=== PATIENT | male | born 1970 | race African-American/Black ===

== ENCOUNTER 2018-01-16 08:46 | Emergency (ER) | payer MEDICARE ==
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
[2018-01-16 09:55] VITALS: BP 139/91
== END 2018-01-16 09:54 | disposition home or self-care (01) ==
LOC: ED 08:46
DX: S60.410A Abrasion of right index finger, initial encounter (principal); W55.82XA Struck by other mammals, initial encounter; Y92.89 Other specified places as the place of occurrence of the external cause
CPT/HCPCS: 99281

== ENCOUNTER 2018-01-16 12:18 | Emergency (ER) | payer MEDICARE ==
[2018-01-16] MEDS ORDERED: Rabies VIRUS VACCINE (Imovax)* 2.5 UNIT/ML 1 ML IM ONE (12:25)
[2018-01-16] MEDS ORDERED: Rabies Immune Globulin 10 ML* 150 UNIT/ML VIAL IM ONE (12:26)
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
[2018-01-16 13:40] VITALS: BP 139/91
== END 2018-01-16 13:38 | disposition home or self-care (01) ==
LOC: ED 12:18
DX: S61.212A Laceration without foreign body of right middle finger without damage to nail, initial encounter (principal); S60.410A Abrasion of right index finger, initial encounter; Z20.3 Contact with and (suspected) exposure to rabies; Y92.89 Other specified places as the place of occurrence of the external cause
CPT/HCPCS: 90375; 96372; 99281

== ENCOUNTER 2018-01-31 08:44 | Emergency (ER) | payer MEDICARE ==
[2018-01-31] MEDS ORDERED: Rabies VIRUS VACCINE (Imovax)* 2.5 UNIT/ML 1 ML IM ONE (08:58)
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
[2018-01-31 09:38] VITALS: BP 150/108
[2018-01-31] MEDS ORDERED: Rabies Vaccine (RabAvert)* 2.5 UNITS VIAL IM ONE (10:00)
== END 2018-01-31 09:35 | disposition home or self-care (01) ==
LOC: ED 08:44
DX: Z20.3 Contact with and (suspected) exposure to rabies (principal); Z23 Encounter for immunization
CPT/HCPCS: 90471; 90675; 96372; 99282

== ENCOUNTER 2018-03-11 07:38 | Emergency (ER) | payer MEDICARE ==
[2018-03-11] MEDS ORDERED: Metoprolol Tartrate TAB* 50 mg PO ONE (08:03)
[2018-03-11 08:35] LABS: ABS Basophils 0 10^3/ul (0-0.2); ABS Eosinophils 0.1 10^3/ul (0-0.6); ABS Lymphocytes 1.9 10^3/ul (1.0-4.8); ABS Monocytes 0.6 10^3/ul (0-0.8); ABS Neutrophils 3.5 10^3/ul (1.5-7.7); ABS Nucleated RBC 0 10^3/ul; Eosinophil % 0.9 % (0-6); Hematocrit 45 % (42-52); Lymphocyte % 30.7 % (25-47); Mean Corpuscular HGB Conc 33 g/dl (31-36); Mean Corpuscular Hemoglobin 31 pg (27-31); Mean Corpuscular Volume 93 fL (80-94); Mean Platelet Volume 8.9 um3 (7.4-10.4); Nucleated Red Blood Cells % 0.1; Platelet Count 232 10^3/ul (150-450); Red Blood Count 4.85 10^6/ul (4.0-5.4); Red Cell Distribution Width 14 % (10.5-15); White Blood Count 6.1 10^3/ul (3.5-10.8)
[2018-03-11 08:54] LABS: EGFR Non-African American 81.3 (>60)
--- NOTE | 2018-03-11 08:55 | RAD ---
HISTORY: Chest pain COMPARISONS: None VIEWS: 1: frontal portable view of the chest at 8:30 AM FINDINGS: LINES AND TUBES: None. CARDIOMEDIASTINAL SILHOUETTE: The cardiomediastinal silhouette is normal for portable technique. PLEURA: The costophrenic angles are sharp. No pleural abnormalities are noted. LUNG PARENCHYMA: The lungs are clear. ABDOMEN: The upper abdomen is clear. There is no subphrenic gas. BONES AND SOFT TISSUES: No bone or soft tissue abnormalities are noted. IMPRESSION: NO ACTIVE CARDIOPULMONARY DISEASE.
[2018-03-11] MEDS ORDERED: Hydrochlorothiazide TAB* 25 MG PO ONE (09:00)
[2018-03-11] MEDS ORDERED: Losartan TAB* 25 MG PO ONE (09:00)
[2018-03-11] MEDS ORDERED: Losartan TAB* 25 MG PO SCH (09:00)
[2018-03-11] MEDS ORDERED: Hydrochlorothiazide TAB* 25 MG PO SCH (09:00)
[2018-03-11] MEDS ORDERED: Losartan/HCTZ 100/25 (NF) TAB PO SCH (09:00)
[2018-03-11 09:32] VITALS: BP 142/97
--- NOTE | 2018-03-11 18:37 | ED ---
Serge Handy Gabriel, scribed for Tatum Barroso MD on 03/11/18 at 0749 . HPI Chest Pain - HPI Summary HPI Summary: This patient is a 48 year old M presenting to [facility] with a chief complaint of CP that began last night but as since resolved. The patient rates the pain 0/10 in severity. Patient reports NGUYỄN and dizziness but is now resolve. Pt states he has run out of his antihypertensive 3 days ago becuase he lost them while relocating and the insurance will not pay for a new script at this time. He received a 3 month supply but lost it while he was moving and insurance will not cover it until the prescription is supposed to run out, so he has no pills for the next 2 months. No hx of MN or CVA. Patient reports that he has an appt to welfare to try and pay for additinal Rx. - History of Current Complaint Chief Complaint: EDChestWallPain Time Seen by Provider: 03/11/18 07:46 Hx Obtained From: Patient Onset/Duration: Still Present Timing: Intermittent Initial Severity: Mild Current Severity: None Pain Intensity: 0 Pain Scale Used: 0-10 Numeric Chest Pain Location: Diffuse Chest Pain Radiates: No Alleviating Factor(s): Spontaneous Resolution Associated Signs and Symptoms: Positive: Other: - NGUYỄN, neck stiffness, and dizziness - Allergy/Home Medications Allergies/Adverse Reactions: Allergies Allergy/AdvReac Type Severity Reaction Status Date / Time No Known Allergies Allergy Verified 03/11/18 07:43 Home Medications: Home Medications NK [No Home Medications Reported] 03/11/18 [History Confirmed 03/11/18] PMH/Surg Hx/FS Hx/Imm Hx Endocrine/Hematology History: Denies: Hx Anticoagulant Therapy Cardiovascular History: Reports: Hx Hypercholesterolemia, Hx Hypertension Denies: Hx Auto Implanted Cardiovert Defib, Hx Cardiac Arrest, Hx Myocardial Infarction Respiratory History: Denies: Hx Chronic Obstructive Pulmonary Disease (COPD) GI History: Reports: Hx Gastroesophageal Reflux Disease Neurological History: Denies: Hx CVA, Hx Dementia Infectious Disease History: No Infectious Disease History: Denies: Traveled Outside the [place] in Last 30 Days - Family History Known Family History: Positive: Cardiac Disease, Hypertension - Social History Alcohol Use: None Substance Use Type: Reports: None Smoking Status (MU): Unknown if Ever Smoked Review of Systems Positive: Chest Pain Positive: Other - stiff neck Neurological: Other - dizziness Positive: Headache All Other Systems Reviewed And Are Negative: Yes Physical Exam - Summary Physical Exam Summary: GENERAL: Patient is a well developed and nourished M who is lying comfortable in the stretcher. Patient is not in any acute respiratory distress. HEAD AND FACE: Normocephalic EYES: PERRLA, EOMI x 2. EARS: Hearing grossly intact. MOUTH: Oropharynx within normal limits. NECK: Supple, trachea is midline, no adenopathy, no JVD, no carotid bruit. CHEST: Symmetric, no tenderness at palpation LUNGS: Clear to auscultation bilaterally. No wheezing or crackles. CVS: Regular rate and rhythm, S1 and S2 present, no murmurs or gallops appreciated. ABDOMEN: Soft, non-tender. Bowel sounds are normal. No abdominal abnormal pulsations. EXTREMITIES: Full ROM in all major joints, no edema, no cyanosis or clubbing. NEURO: Alert and oriented x 3. No acute neurological deficits. Speech is normal and follows commands. SKIN: Dry and warm Triage Information Reviewed: Yes Vital Signs On Initial Exam: Initial Vitals Temp Pulse Resp BP Pulse Ox 99.1 F 82 16 158/109 98 03/11/18 07:40 03/11/18 07:40 03/11/18 07:40 03/11/18 07:40 03/11/18 07:40 Vital Signs Reviewed: Yes Diagnostics - Vital Signs Vital Signs Temp Pulse Resp BP Pulse Ox 03/11/18 07:40 99.1 F 82 16 158/109 98 - Laboratory Lab Results: Lab Results 03/11/18 03/11/18 03/11/18 Range/Units 08:13 08:13 08:13 WBC 6.1 (3.5-10.8) 10^3/ul RBC 4.85 (4.0-5.4) 10^6/ul Hgb 15.0 (14.0-18.0) g/dl Hct 45 (42-52) % MCV 93 (80-94) fL MCH 31 (27-31) pg MCHC 33 (31-36) g/dl RDW 14 (10.5-15) % Plt Count 232 (150-450) 10^3/ul MPV 8.9 (7.4-10.4) um3 Neut % (Auto) 57.5 (38-83) % Lymph % (Auto) 30.7 (25-47) % [place] % (Auto) 10.4 H (0-7) % Eos % (Auto) 0.9 (0-6) % Baso % (Auto) 0.5 (0-2) % Absolute Neuts (auto) 3.5 (1.5-7.7) 10^3/ul Absolute Lymphs (auto) 1.9 (1.0-4.8) 10^3/ul Absolute Monos (auto) 0.6 (0-0.8) 10^3/ul Absolute Eos (auto) 0.1 (0-0.6) 10^3/ul Absolute Basos (auto) 0 (0-0.2) 10^3/ul Absolute Nucleated RBC 0 10^3/ul Nucleated RBC % 0.1 APTT 34.0 (26.0-36.3) seconds Sodium 139 (139-145) mmol/L Potassium 3.7 (3.5-5.0) mmol/L Chloride 106 (101-111) mmol/L Carbon Dioxide 25 (22-32) mmol/L Anion Gap 8 (2-11) mmol/L BUN 17 (6-24) mg/dL Creatinine 0.98 (0.67-1.17) mg/dL Est GFR ( Amer) 104.5 (>60) Est GFR (Non-Af Amer) 81.3 (>60) BUN/Creatinine Ratio 17.3 (8-20) Glucose 114 H (70-100) mg/dL Calcium 9.5 (8.6-10.3) mg/dL Total Bilirubin 0.90 (0.2-1.0) mg/dL AST 16 (13-39) U/L ALT 16 (7-52) U/L Alkaline Phosphatase 47 (34-104) U/L Troponin I 0.00 (<0.04) ng/mL B-Natriuretic Peptide ( - 100) pg/mL Total Protein 7.4 (6.4-8.9) g/dL Albumin 4.4 (3.2-5.2) g/dL Globulin 3.0 (2-4) g/dL Albumin/Globulin Ratio 1.5 (1-3) HIV 1&2 Antibody (Nonreactive) 05/24/18 05/24/18 Range/Units 08:13 08:13 WBC (3.5-10.8) 10^3/ul RBC (4.0-5.4) 10^6/ul Hgb (14.0-18.0) g/dl Hct (42-52) % MCV (80-94) fL MCH (27-31) pg MCHC (31-36) g/dl RDW (10.5-15) % Plt Count (150-450) 10^3/ul MPV (7.4-10.4) um3 Neut % (Auto) (38-83) % Lymph % (Auto) (25-47) % [place] % (Auto) (0-7) % Eos % (Auto) (0-6) % Baso % (Auto) (0-2) % Absolute Neuts (auto) (1.5-7.7) 10^3/ul Absolute Lymphs (auto) (1.0-4.8) 10^3/ul Absolute Monos (auto) (0-0.8) 10^3/ul Absolute Eos (auto) (0-0.6) 10^3/ul Absolute Basos (auto) (0-0.2) 10^3/ul Absolute Nucleated RBC 10^3/ul Nucleated RBC % APTT (26.0-36.3) seconds Sodium (139-145) mmol/L Potassium (3.5-5.0) mmol/L Chloride (101-111) mmol/L Carbon Dioxide (22-32) mmol/L Anion Gap (2-11) mmol/L BUN (6-24) mg/dL Creatinine (0.67-1.17) mg/dL Est GFR ( Amer) (>60) Est GFR (Non-Af Amer) (>60) BUN/Creatinine Ratio (8-20) Glucose (70-100) mg/dL Calcium (8.6-10.3) mg/dL Total Bilirubin (0.2-1.0) mg/dL AST (13-39) U/L ALT (7-52) U/L Alkaline Phosphatase (34-104) U/L Troponin I (<0.04) ng/mL B-Natriuretic Peptide 34 ( - 100) pg/mL Total Protein (6.4-8.9) g/dL Albumin (3.2-5.2) g/dL Globulin (2-4) g/dL Albumin/Globulin Ratio (1-3) HIV 1&2 Antibody Nonreactive (Nonreactive) Result Diagrams: 03/11/18 08:13 03/11/18 08:13 Lab Statement: Any lab studies that have been ordered have been reviewed, and results considered in the medical decision making process. - Radiology CXR Radiology Interpretation Completed By: Radiologist - No active cardiopulmonary disease ED physician has reviewed this radiology report. - EKG 07:43 Cardiac Rate: NL EKG Rhythm: Sinus Rhythm - at 78 BPM EKG Interpretation: no ischemic changes Chest Pain Course/Dx - Course Assessment/Plan: This patient is a 48 year old M presenting to [facility] with a chief complaint of CP that began last night but have resolved. The patient rates the pain 0/10 in severity. Patient reports NGUYỄN, neck stiffness, and dizziness. Pt states he has run out of his antihypertensive 3 days ago due to insurance issues. He received a 3 month supply but lost it while he was moving and insurance will not cover it until the prescription is supposed to run out, so he has no pills for the next 2 months. No hx of MN or CVA. An EKG reveals NSR 78 BPM 0802 no ischemic changes. CXR reveals, per radiologist, No active cardiopulmonary disease. I reviewed the labs and they are unremarkable. The patient was given a dose of his medication in the ED and he will follow up with welfare to attempt to get his script filled. The pt was also given the number for the physician referral center since he is new to the area and does not have a PCP. Dx medication refill. The patient is agreeable with this plan. - Diagnoses Provider Diagnoses: Medication refill Discharge - Sign-Out/Discharge Documenting (check all that apply): Discharge/Admit/Transfer - Discharge Plan Condition: Stable Disposition: HOME Patient Education Materials: Chest Pain (ED) Referrals: [facility] [place]Outside] - 2 Days Additional Instructions: RETURN TO THE EMERGENCY DEPARTMENT FOR CHANGING OR WORSENING SYMPTOMS - Billing Disposition and Condition Condition: STABLE Disposition: HOME The documentation as recorded by the Serge valdez Gabriel accurately reflects the service I personally performed and the decisions made by me, Tatum Barroso MD.
== END 2018-03-11 09:34 | disposition home or self-care (01) ==
LOC: ED 07:38
DX: Z76.0 Encounter for issue of repeat prescription (principal); E78.00 Pure hypercholesterolemia, unspecified; I10 Essential (primary) hypertension; K21.9 Gastro-esophageal reflux disease without esophagitis; R07.9 Chest pain, unspecified
CPT/HCPCS: 36415; 71045; 80053; 83880; 84484; 85025; 85730; 86703; 93005; 99283; A9270-GY